=== PATIENT | female | born 1990 | race American Indian/Alaskan Native ===

== ENCOUNTER 2017-02-10 15:36 | Emergency (ER) | payer BC, MEDICAID ==
[2017-02-10 15:49] VITALS: BP 96/64
== END 2017-02-11 03:15 | disposition left against medical advice (07) ==
LOC: ED 15:36
DX: R06.02 Shortness of breath (principal); R20.0 Anesthesia of skin; R20.2 Paresthesia of skin; Z53.21 Procedure and treatment not carried out due to patient leaving prior to being seen by health care provider

== ENCOUNTER 2017-06-01 13:38 | Emergency (ER) | payer MEDICAID | END 2017-06-01 13:39 | disposition left against medical advice (07) | LOC: ED 13:38 | DX: R10.9 Unspecified abdominal pain (principal); Z53.21 Procedure and treatment not carried out due to patient leaving prior to being seen by health care provider ==

== ENCOUNTER 2020-12-10 16:47 | Inpatient (IN) | payer OTHER ==
[2020-12-10] MEDS ORDERED: AMPICILLIN/NS 2 GM/100 ML 2 GM/100 ML BAG IV ONE (17:28)
[2020-12-10] MEDS ORDERED: LIDOCAINE (2%) 20 MG/1 ML VIAL 20 ML MDV INFILTRATI ONE (17:28)
[2020-12-10] MEDS ORDERED: miSOPROStol 200 MCG TAB PR PRN (17:28)
[2020-12-10] MEDS ORDERED: OXYTOCIN 10 UNIT/1 ML INJ IM PRN (17:28)
[2020-12-10] MEDS ORDERED: METHYLERGONOVINE MALEATE 0.2 MG/ML VIAL IM PRN (17:28)
[2020-12-10] MEDS ORDERED: CARBOPROST TROMETHAMINE 250 MCG/1 ML INJ IM PRN (17:28)
[2020-12-10] MEDS ORDERED: ACETAMINOPHEN 325 MG TAB PO PRN ×2 (17:28→23:16)
[2020-12-10] MEDS ORDERED: LOPERAMIDE 2 MG CAP PO PRN (17:28)
[2020-12-10] MEDS ORDERED: NALOXONE 0.4 MG/1 ML INJ IV PRN (17:28)
[2020-12-10] MEDS ORDERED: ONDANSETRON 4 MG/2 ML INJ IV PRN ×2 (17:28→23:16)
[2020-12-10] MEDS ORDERED: fentaNYL 100 MCG/2 ML INJ IV PRN (17:28)
[2020-12-10] MEDS ORDERED: TERBUTALINE 1 MG/1 ML INJ SUB-Q PRN (17:28)
[2020-12-10] MEDS ORDERED: MINERAL OIL 30 ML ORAL LIQD PO PRN (17:28)
[2020-12-10] MEDS ORDERED: PROMETHAZINE 25 MG TAB PO PRN ×2 (17:28→23:16)
[2020-12-10] MEDS ORDERED: LACTATED RINGERS 1,000 ML IV SCH (17:30)
--- NOTE | 2020-12-10 17:33 | History and Physical Report ---
History of Present Illness Date of examination: 12/10/20 (contractions) Date of admission: 12/10/20 Chief complaint: Contractions that have become stronger in the last few hours. History of present illness: EDC Confirmation: 12/23/2020 Gestational Age: 38.1 wks on admission Past History : 3 Term Births: 1 Premature Births: 0 Living Children: 1 Para: 1 Mult. Births: 0 Prev : 0 Prev. attempt? 0 Aborta: 1 Elect. Ab: 0 Spont. Ab: 1 Ectopics: 0 # 1 Delivery date: 12/25/2014 Weeks Gestation: 39+1 Delivery type: Vaginal Anesthesia type: epidural Delivery location: [facility] Sex: male weight: 7.25 Comments: none # 2 Delivery date: 05/2018 Delivery type: SAB Past Medical History: Reviewed history from 09/02/2019 and no changes required: MVP (2012) Lupus - 2013 Ovarian Cysts Past Surgical History: Reviewed history from 11/24/2016 and no changes required: MVP with MV repair 11/2012. Left leg surgery with holly placement (2011) Past Medical History Abnormal PAP: positive, +HPV ~2010; LEEP AUBREY Exposure: negative Infertility: negative Uterine Anomaly: negative Uterine Surgery (not C/S): negative Social Hx: Patient is single Chairman And Ceo Smoking History: Patient currently smokes every day. Patient has been counseled to quit. Infection History Hx of STD: gc/ct/trich HIV Risk Eval: low risk Hepatitis B Risk Eval: low risk Personal hx. of genital herpes: yes Partner hx. of genital herpes: no Rash, Viral, or Febrile illness since last LMP? no Varicella/Chicken Pox Status: Previous Disease Genetic History Congenital Heart Defect: Mom: no Dad: unknown Poncho Disease: Mom: no Dad: unknown Thalassemia Mom: no Dad: unknown Neural Tube Defect Mom: no Dad: unknown Down's Syndrome Mom: no Dad: unknown Dc-Sachs Mom: no Dad: unknown Sickle Cell Disease/Trait Mom: no Dad: unknown Hemophilia Mom: no Dad: unknown Muscular Dystrophy Mom: no Dad: unknown Cystic Fibrosis Mom: no Dad: unknown Challis Chorea Mom: no Dad: unknown Mental Retardation Mom: no Dad: unknown Fragile X Mom: no Dad: unknown Other Genetic/Chromosomal Disorder Mom: no Dad: unknown Child w/other defect Mom: no Dad: unknown Enviromental Exposures Xray Exposure: no Medication, drug, or alcohol use since LMP: no Chemical/Other Exposure: no Exposure to Cat Liter: no Hx of Parvovirus (Fifth Disease): no Occupational Exposure to Children: none Current Allergies (reviewed today): * Pollen Past History Past Medical History: no pertinent history, other (Lupus) Past Surgical History: other (2013: leg surgery with holly placement, Mitral valve repair) 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 (Ovarian cysts) Social history: no significant social history - Obstetrical History Expected Date of Delivery: 12/23/20 Actual Gestation: 38 Week(s) 1 Day(s) : 3 Para: 1 Hx # Term Pregnancies: 1 Number of Pregnancies: 0 Spontaneous Abortions: 1 Induced : 0 Number of Living Children: 1 Medications and Allergies Allergies Allergy/AdvReac Type Severity Reaction Status Date / Time pollen Allergy Itching Uncoded 12/10/14 09:28 Home Medications Medication Instructions Recorded Confirmed Last Taken Type Amoxicillin [Trimox CAP] 500 mg PO TID #10 capsule 01/29/14 12/25/14 Unknown Rx Ibuprofen [Motrin] 800 mg PO Q8H #14 tablet 01/29/14 12/25/14 12/25/14 17:02 Rx prednisoLONE 15 ml PO QDAY 5 Days ml 01/29/14 12/25/14 Unknown Rx Vit-Fe Fumar-FA [ 1 tab PO DAILY 12/10/14 12/25/14 2 Days Ago History Vitamin] ~12/23/14 diphenhydrAMINE [Benadryl] 25 mg PO Q8HR PRN 12/10/14 12/25/14 12/05/14 21:00 History 1 Lidocaine/Prilocaine [Emla Cream] 30 gm TP PRN #1 cream..g. 12/25/14 Unknown Rx Active Meds: Active Medications Acetaminophen (Acetaminophen 325 Mg Tab) 1,000 mg PO Q6H PRN PRN Reason: Pain, Mild (1-3) Carboprost Tromethamine (Carboprost Tromethamine 250 Mcg/1 Ml Inj) 250 mcg IM ONCE PRN PRN Reason: Uterine Bleeding Ephedrine Sulfate (Ephedrine Sulfate 50 Mg/1 Ml Inj) 10 mg IV Q2M PRN PRN Reason: Hypotension Fentanyl (Fentanyl 100 Mcg/2 Ml Inj) 100 mcg IV Q2H PRN PRN Reason: Pain,Severe (7-10) LABOR PAIN Oxytocin/Sodium Chloride (Pitocin/Ns 30 Unit/500ml) 30 units in 500 mls @ 4 mls/hr IV TITR ROXANNE; Protocol Lactated Ringer's (Lactated Ringers) 1,000 mls @ 125 mls/hr IV DIRECT ROXANNE Oxytocin/Sodium Chloride (Pitocin/Ns 30 Unit/500ml) 30 units in 500 mls @ 40 mls/hr IV TITR ROXANNE; Protocol Ampicillin Sodium (Ampicillin/Ns 2 Gm/100 Ml) 2 gm in 100 mls @ 100 mls/hr IV ONCE ONE; Protocol Stop: 12/10/20 18:27 Lidocaine (Lidocaine (2%) 20 Mg/1 Ml Vial 20 Ml Mdv) 20 ml INFILTRATI ONCE ONE Stop: 12/10/20 17:29 Loperamide HCl (Loperamide 2 Mg Cap) 2 mg PO ONCE PRN PRN Reason: give with Hemabate Methylergonovine Maleate (Methylergonovine Maleate 0.2 Mg/Ml Vial) 0.2 mg IM ONCE PRN PRN Reason: Uterine Bleeding Mineral Oil (Mineral Oil 30 Ml Oral Liqd) 30 ml PO QHS PRN PRN Reason: Constipation Misoprostol (Misoprostol 200 Mcg Tab) 800 mcg MO ONCE PRN PRN Reason: Uterine Bleeding Naloxone HCl (Naloxone 0.4 Mg/1 Ml Inj) 0.1 mg IV Q2MIN PRN PRN Reason: Res Rate </= 8 or 02 SAT < 92% Ondansetron HCl (Ondansetron 4 Mg/2 Ml Inj) 4 mg IV Q8H PRN PRN Reason: Nausea And Vomiting Oxytocin (Oxytocin 10 Unit/1 Ml Inj) 10 unit IM ONCE PRN PRN Reason: Uterine Bleeding Promethazine HCl (Promethazine 25 Mg Tab) 25 mg PO Q6H PRN PRN Reason: Nausea And Vomiting Terbutaline Sulfate (Terbutaline 1 Mg/1 Ml Inj) 0.25 mg SUB-Q ONCE PRN PRN Reason: Hyperstimulation/Hypertonicity Review of Systems All systems: negative - Vital Signs Vital signs: Vital Signs Pulse BP 78 130/96 12/10/20 17:18 12/10/20 17:18 Temp Pulse Resp BP Pulse Ox 78 130/96 12/10/20 17:18 12/10/20 17:18 - Physical Exam Breasts: Positive: deferred Cardiovascular: Regular rate Lungs: Positive: Normal air movement Abdomen: Positive: normal appearance, soft Uterus: Positive: normal size Extremities: Positive: normal Deep Tendon Reflex Grade: Normal +2 - Obstetrical FHR: category 1 Cervical Dilatation: 4 (BBOW per RN) Cervical Effacement Percentage: 80 station: -2 Results Result Diagrams: 12/10/20 15:45 All other labs normal. GBS POSITIVE HBsAg Screen Negative Negative *1 RPR Non Reactive Non Reactive *2 Rubella Antibodies, IgG 1.33 index Immune >0.99 *3 Non-immune <0.90 Equivocal 0.90 - 0.99 Immune >0.99 ABO Grouping O *4 Rh Factor Positive *5 Please note: Prior records for this patient's ABO / Rh type are not available for additional verification. Antibody Screen Negative Negative *6 Tests: (2) HB Solu + Rflx Frac (053183) Hemoglobin (Hgb) Solubility Negative Negative *31 Tests: (3) HIV Ag/Ab with Reflex (110398) HIV Screen 4th Generation wRfx Non Reactive Non Reactive *32 Tests: (4) HCV Ab w/Rflx to Verification (540366) ! HCV Ab <0.1 s/co ratio 0.0-0.9 *33 Tests: (5) Comment: ([id number]) ! Comment: SPRCS *34 Non reactive HCV antibody screen is consistent with no HCV infection, unless recent infection is suspected or other evidence exists to indicate HCV infection. Assessment and Plan A: 30 y.o. @ 38.1 wks with ctxs. Cervical exam per analytic manager: /-2. GBS positive. Hx of herpes. - Patient Problems (1) 38 to 41 weeks gestation of Current Visit: Yes Status: Acute Plan to address problem: Admit to labor and delivery. Start IV and draw admission labs. Continuous EFM. Anticipate . (2) GBS (group B streptococcus) infection Current Visit: Yes Status: Acute Plan to address problem: Antibiotics ordered per protocol. (3) Genital herpes, unspecified Current Visit: Yes Status: Acute Qualifiers: Herpes simplex infection site: unspecified site of urogenital system Qualified Code(s): A60.00 - Herpesviral infection of urogenital system, unspecified Plan to address problem: No lesions seen on exam. Pt has been taking Valtrex as prescribed.
[2020-12-10] MEDS ORDERED: OXYTOCIN DRIP 30 UNITS/500 ML BAG IV SCH ×3 (18:00→23:45)
[2020-12-10] MEDS ORDERED: ACETAMINOPHEN 500 MG TAB PO PRN (18:05)
[2020-12-10 18:06] LABS: Hematocrit 36.3 % (30.3-42.9); Hemoglobin 12.1 gm/dl (10.1-14.3); Mean Corpuscular HGB Conc 33 % (30-34); Mean Corpuscular Volume 78 fl (79-97); Platelet Count 217 K/mm3 (140-440); Red Blood Count 4.63 M/mm3 (3.65-5.03); Red Cell Distribution Width 14.2 % (13.2-15.2)
[2020-12-10] MEDS ORDERED: valACYclovir 500 MG TAB PO SCH (19:00)
[2020-12-10] MEDS ORDERED: LACTATED RINGERS 250 ML IV SOLN IV ONE (20:51)
[2020-12-10] MEDS ORDERED: NalbUPHINE 10 MG/1 ML INJ IV PRN (20:51)
[2020-12-10] MEDS ORDERED: NALOXONE 2 MG/2 ML INJ IV PRN (20:51)
[2020-12-10] MEDS ORDERED: ePHEDrine SULFATE 50 MG/1 ML INJ IV PRN (20:51)
[2020-12-10] MEDS ORDERED: diphenhydrAMINE 50 MG/ML VIAL IV PRN (20:51)
[2020-12-10] MEDS ORDERED: fentaNYL-BUPIV 2 MCG/ML-0.125% 200 MCG/100 ML BAG EPIDURAL SCH (21:00)
--- NOTE | 2020-12-10 21:22 | Anesthesia Consultation ---
Anesthesia Consult and Med Hx Date of service: 12/10/20 - Airway Anesthetic Teeth Evaluation: Good ROM Head & Neck: Adequate Mental/Hyoid Distance: Adequate Mallampati Class: Class III Intubation Access Assessment: Possibly Difficult - Pulmonary Exam CTA: Yes - Cardiac Exam Cardiac Exam: RRR - Pre-Operative Health Status ASA Pre-Surgery Classification: ASA2 Proposed Anesthetic Plan: Epidural, Spinal - Pulmonary Hx Smoking: Yes Hx Asthma: No COPD: No Hx Sleep Apnea: No - Cardiovascular System Hx Hypertension: No Hx Coronary Artery Disease: No Hx Heart Attack/AMI: No Hx Angina: No Hx Percutaneous Transluminal Coronary Angioplasty (PTCA): No Hx Pacemaker: No Hx Internal Defibrillator: No Hx Valvular Heart Disease: Yes (h/o MVP and repair) - Central Nervous System Hx Seizures: No Hx Psychiatric Problems: No - Gastrointestinal Hx Gastroesophageal Reflux Disease: No - Endocrine Hx Renal Disease: No Hx Liver Disease: No Hx Insulin Dependent Diabetes: No Hx Non-Insulin Dependent Diabetes: No Hx Hypothyroidism: No Hx Hyperthyroidism: No - Hematic Hx Anemia: No Hx Sickle Cell Disease: No - Other Systems Hx Alcohol Use: No Hx Obesity: Yes
--- NOTE | 2020-12-10 21:24 | Progress Note ---
Labor Epidural - Labor Epidural Start Time: 21:02 Stop Time: 21:15 Performed by:: RONAK ARROYO Procedure: Patient is requesting combined spinal epidural for labor and pain. H&P, labs were reviewed. All questions and concerns were answered. Informed consent was obtained. Timeout performed. Patient in sitting position on side of bed. Sterile prep and drape was performed. 3 mL 1% lidocaine skin wheal at L [3]-L [4]. 18-gauge Irma epidural needle advanced to [id number] using air technique, [7cm]. 27-gauge spinal needle advanced, pt reported a strong L side parathesia so needle removed. Epidural catheter advanced to [12] cm. [negative] Aspiration, [negative] test dose. Sterile dressing applied. Patient tolerated procedure well.
[2020-12-10] MEDS: ePHEDrine SULFATE 50 MG/1 ML INJ IV PRN ×2 (21:33→22:01)
[2020-12-10] MEDS ORDERED: SODIUM CHLORIDE 0.9% 1000 ML 1,000 ML ONE (21:54)
--- NOTE | 2020-12-10 22:01 | Progress Note ---
Assessment and Plan A: 30 y.o. @ 38.1 wks, active labor, cervical exam /2. Large amount of thick green mec noted on bed. P: Continue to monitor labor progress. Start amnioinfusion. Anticipate . - Patient Problems (1) 38 to 41 weeks gestation of Current Visit: Yes Status: Acute (2) GBS (group B streptococcus) infection Current Visit: Yes Status: Acute (3) Genital herpes, unspecified Current Visit: Yes Status: Acute Qualifiers: Herpes simplex infection site: unspecified site of urogenital system Qualified Code(s): A60.00 - Herpesviral infection of urogenital system, unspecified Subjective - Subjective Date of service: 12/10/20 (FSE and IUPC placed. ) Principal diagnosis: IUP @ 38.1 wks, SROM mec, active labor. Patient reports: other (Vaginal pressure) Objective - Vital Signs Vital Signs: Vital Signs - 12hr 12/10/20 12/10/20 12/10/20 17:18 17:35 18:24 Temperature 98.3 F Pulse Rate 78 78 68 Respiratory 18 Rate Blood Pressure 130/96 122/74 Blood Pressure 130/96 [Left] O2 Sat by Pulse Oximetry 12/10/20 12/10/20 12/10/20 19:19 19:22 20:24 Temperature 98.4 F Pulse Rate 76 76 69 Respiratory 17 Rate Blood Pressure 113/69 130/90 Blood Pressure 113/69 [Left] O2 Sat by Pulse Oximetry 12/10/20 12/10/20 12/10/20 20:36 21:01 21:03 Temperature 98 F Pulse Rate 75 69 Respiratory Rate Blood Pressure 119/71 Blood Pressure [Left] O2 Sat by Pulse 97 Oximetry 12/10/20 12/10/20 12/10/20 21:06 21:11 21:12 Temperature Pulse Rate 66 68 73 Respiratory Rate Blood Pressure 150/90 Blood Pressure [Left] O2 Sat by Pulse 98 100 Oximetry 12/10/20 12/10/20 12/10/20 21:14 21:16 21:21 Temperature Pulse Rate 70 68 86 Respiratory Rate Blood Pressure 168/70 Blood Pressure [Left] O2 Sat by Pulse 99 98 Oximetry 12/10/20 12/10/20 12/10/20 21:22 21:24 21:25 Temperature Pulse Rate 87 81 80 Respiratory Rate Blood Pressure 107/65 96/62 89/55 Blood Pressure [Left] O2 Sat by Pulse Oximetry 12/10/20 12/10/20 12/10/20 21:26 21:27 21:30 Temperature Pulse Rate 79 80 77 Respiratory Rate Blood Pressure 83/48 85/52 Blood Pressure [Left] O2 Sat by Pulse 96 Oximetry 12/10/20 12/10/20 12/10/20 21:31 21:33 21:36 Temperature Pulse Rate 80 87 97 H Respiratory Rate Blood Pressure 84/55 88/50 Blood Pressure [Left] O2 Sat by Pulse 98 97 Oximetry 12/10/20 12/10/20 12/10/20 21:41 21:45 21:46 Temperature Pulse Rate 96 H 75 92 H Respiratory Rate Blood Pressure 92/50 103/55 Blood Pressure [Left] O2 Sat by Pulse 98 90 100 Oximetry 12/10/20 12/10/20 12/10/20 21:49 21:51 21:54 Temperature Pulse Rate 88 93 H 89 Respiratory Rate Blood Pressure 95/52 Blood Pressure [Left] O2 Sat by Pulse 100 91 Oximetry - Exam Narrative Exam: Pt feeling vaginal pressure. Before cervical exam a large amount of thick green mec gushed out of vagina. Cervical exam 7/-2. FSE and IUPC placed. Category 2 tracing with decelerations noted into the 80's with recovery to baseline. Pt's blood pressure noted to be in the 80's/40's. RN administered ephedrine. Will continue to monitor blood pressures. Will also start amnioinfusion. FHR: category 2 Uterine Contraction Monitor Mode: Internal Cervical Dilatation: 7 Cervical Effacement Percentage: 90 station: -2 Uterine Contraction Pattern: Regular Uterine Tone Measurement Phase: Resting Uterine Contraction Intensity: Moderate - Labs Labs: Abnormal Labs 12/10/20 15:45 MCV 78 L MCH 26 L Laboratory Results - last 24 hr 12/10/20 12/10/20 12/10/20 15:45 15:45 15:45 WBC 9.0 RBC 4.63 Hgb 12.1 Hct 36.3 MCV 78 L MCH 26 L MCHC 33 RDW 14.2 Plt Count 217 Syphilis IgG Antibody Nonreactive Blood Type O POSITIVE Antibody Screen Negative
[2020-12-10] MEDS ORDERED: AMPICILLIN/NS 1 GM/50 ML 1 GM/50 ML BAG IV SCH (23:00)
--- NOTE | 2020-12-10 23:12 | Procedure Note ---
OB Delivery Note - Delivery Date of Delivery: 12/10/20 Paper Twister Tender: MARK MICHAELS Estimated blood loss: 200cc - Vaginal Delivery presentation: vertex Delivery position: OA Intrapartum events: mult.variable deceleratio, other(please specify) (Prolonged decelerations) Delivery induction: none Delivery monitor: external FHT, external uterine, internal FHT, internal uterine Route of delivery: Delivery placenta: spontaneous Delivery cord: nuchal cord (X1 easily reduced. ), 3 umbilical vessels Episiotomy: none Delivery laceration: none Anesthesia: none Delivery comments: of viable female infant over intact perineum. Nuchal cord X1 easily reduced. to mother abdomen for skin to skin. Cord cut and clamped and handed to FELI team for evaluation. Spontaneous delivery of placenta, intact, complete, 3 vessels noted. Meconium stained placenta with possible calcifications noted. Will send to pathology. Perineum and vagina inspected. No lacerations noted. Fundus firm, minimal bleeding noted. EBL 200ml. Apgars 8,9. Weight 5-11. Instruments and sponges counted X 2 and correct X2. Mother and left in stable condition in the care of RN. - A at 1 minute: 8 at 5 minutes: 9 Infant Gender: Female (Rosamaria, 5-11)
[2020-12-10] MEDS ORDERED: BENZOCAINE/MENTHOL 20/0.5% TOP SPRAY 56 GM TP PRN (23:16)
[2020-12-10] MEDS ORDERED: MAGNESIUM HYDROXIDE (MOM) ORAL LIQD UDC PO PRN (23:16)
[2020-12-10] MEDS ORDERED: WITCH HAZEL/ GLYCERIN PAD TP PRN (23:16)
[2020-12-10] MEDS ORDERED: LANOLIN/ZINC/DIMETHICONE (LANSINOH) 7 GM TP PRN ×2 (23:16)
[2020-12-10] MEDS ORDERED: diphenhydrAMINE 25 MG CAP PO PRN (23:16)
[2020-12-11] MEDS: IBUPROFEN 800 MG TAB PO SCH ×4 (02:00→21:43)
--- NOTE | 2020-12-11 08:25 | Progress Note ---
Assessment and Plan PPD #1 s/p uncomplicated . VSSAF. H&H ordered for 11am. pt c/o left hip pain exacerbated by delivery. Advised hip pain can occur after vaginal delivery. encouraged warm shower and use of tylenol/motrin for pain. rn to call if pain worsens or is unrelieved. - Patient Problems (1) Vaginal delivery Current Visit: No Status: Acute Plan to address problem: continue course plan for d/c home tomorrow Subjective - Subjective Date of service: 12/11/20 Principal diagnosis: day #1 s/p Patient reports: appetite normal, voiding normally, pain well controlled, ambulating normally, other (left hip pain), no dizzy ambulation Hurley: doing well, nursing well Objective - Vital Signs Latest vital signs: Vital Signs Temp Pulse Resp BP BP Pulse Ox 12/11/20 04:23 98.0 F 68 20 127/81 83 L 12/11/20 03:00 18 12/11/20 02:00 18 12/11/20 00:46 83 18 116/73 100 12/11/20 00:17 87 100 12/11/20 00:12 76 100 12/11/20 00:07 74 100 12/11/20 00:06 75 109/54 12/11/20 00:02 75 100 12/10/20 23:57 82 100 12/10/20 23:52 76 100 12/10/20 23:47 80 99 12/10/20 23:42 80 100 12/10/20 23:37 82 99 12/10/20 23:35 97.8 F 77 114/60 12/10/20 23:32 83 97 12/10/20 23:27 87 100 12/10/20 23:22 85 100 12/10/20 23:20 85 104/76 12/10/20 23:17 84 99 12/10/20 23:12 90 100 12/10/20 23:07 83 99 12/10/20 23:05 83 108/64 12/10/20 23:02 86 98 12/10/20 22:57 83 99 12/10/20 22:52 83 99 12/10/20 22:49 85 117/78 12/10/20 22:47 85 100 12/10/20 22:42 67 93 12/10/20 22:37 91 H 100 04/12/21 22:32 88 100 12/10/20 22:27 83 100 12/10/20 22:22 79 100 12/10/20 22:17 55 L 12/10/20 22:15 88 83 L 12/10/20 22:11 98 H 100 12/10/20 22:09 90 109/59 12/10/20 22:06 91 H 100 12/10/20 22:05 88 120/65 12/10/20 22:01 98 H 100 12/10/20 21:59 88 83/46 12/10/20 21:57 89 80/49 12/10/20 21:56 94 H 100 12/10/20 21:54 89 91 12/10/20 21:51 93 H 100 12/10/20 21:49 88 95/52 12/10/20 21:46 92 H 103/55 100 12/10/20 21:45 75 90 12/10/20 21:41 96 H 92/50 98 12/10/20 21:36 97 H 97 12/10/20 21:33 87 88/50 12/10/20 21:31 80 84/55 98 12/10/20 21:30 77 85/52 12/10/20 21:27 80 83/48 12/10/20 21:26 79 96 12/10/20 21:25 80 89/55 12/10/20 21:24 81 96/62 12/10/20 21:22 87 107/65 12/10/20 21:21 86 98 12/10/20 21:16 68 99 12/10/20 21:14 70 168/70 12/10/20 21:12 73 150/90 12/10/20 21:11 68 100 12/10/20 21:06 66 98 12/10/20 21:03 69 119/71 12/10/20 21:01 75 97 12/10/20 20:36 98 F 12/10/20 20:24 69 130/90 12/10/20 19:22 76 113/69 12/10/20 19:19 98.4 F 76 17 113/69 12/10/20 18:24 68 122/74 12/10/20 17:35 98.3 F 78 18 130/96 12/10/20 17:18 78 130/96 Intake and Output 12/10/20 12/11/20 12/11/20 23:59 07:59 15:59 Intake Total 360 Output Total 600 Balance -240 Intake: Intake, Free Water 360 Output: Urine 600 Void 600 Other: Total, Output Amount 600 Weight 102.965 kg Estimated Blood Loss 200 - Exam Breasts: Present: normal, Cardiovascular: Present: Regular rate Lungs: Present: Clear to auscultation, Normal air movement Abdomen: Present: normal appearance, soft Vulva: both: normal Uterus: Present: normal, firm, fundal height at umbilicus Extremities: Present: normal Deep Tendon Reflex Grade: Normal +2 - Labs Labs: Abnormal lab results 12/10/20 Range/Units 15:45 MCV 78 L (79-97) fl MCH 26 L (28-32) pg
[2020-12-11] MEDS: DOCUSATE SODIUM 100 MG CAP PO SCH ×2 (08:47→21:43)
[2020-12-11] MEDS ORDERED: PRENATAL VIT27-FE FUMARATE-FOLIC ACID VIT TAB PO SCH (10:00)
[2020-12-11] MEDS ORDERED: HYDROcodone/ACETAMINOPHEN 5-325 MG TAB PO SCH (11:30)
--- NOTE | 2020-12-11 13:51 | Post Anesthesia Evaluation ---
- Post Anesthesia Evaluation Patient Participated: Yes Airway Patent: Yes Stable Respiratory Function: Yes Nausea/Vomiting: No Temp > 96.8F: Yes Pain Manageable: Yes Adequeate Hydration: Yes Anesthesia Complications: No Block Receding Appropriately: Yes Patient on Ventilator: No
[2020-12-11 14:23] LABS: Hematocrit 32.2 % (30.3-42.9); Hemoglobin 10.6 gm/dl (10.1-14.3)
[2020-12-12] MEDS: IBUPROFEN 800 MG TAB PO SCH ×4 (00:05→23:58)
[2020-12-12] MEDS ORDERED: TETANUS,DIPH,PERTUSS(ACELL) VACCINE 0.5 ML SYRINGE IM ONE (06:00)
--- NOTE | 2020-12-12 06:43 | Discharge Summary ---
Providers - Providers Date of Admission: 12/10/20 17:28 Date of discharge: 12/12/20 (desires discharge) Attending physician: HILDA BARTLETT Primary care physician: HILDA BARTLETT Hospitalization Reason for admission: active labor Delivery: Episiotomy: none Laceration: none Other procedures: none complications: none Discharge diagnosis: IUP at term delivered [place] baby: female Hospital course: Normal Spontaneous Vaginal Delivery Pt alert and oriented X3. VSS. H&H 10.6/32.2. Fundus is firm and 2 below the umbilicus. Bleeding is small. Pt. denies any pain. . Plan is to discharge home today and follow up in office in 4 weeks. Condition at discharge: Good Disposition: DC-01 TO HOME OR SELFCARE - Discharge Diagnoses (1) Vaginal delivery Status: Acute Comment: RTO 4 weeks PP care Plan - Provider Discharge Summary Activity: routine, no sex for 6 weeks, no heavy lifting 4 weeks, no strenuous exercise Diet: routine Instructions: routine Additional instructions: [] Smoking cessation referral if applicable(refer to patient education folder for contact #) [] Refer to [facility] Booklet Call your doctor immediately for: * Fever > 100.5 * Heavy vaginal bleeding ( >1 pad per hour) * Severe persistent headache * Shortness of breath * Reddened, hot, painful area to leg or breast * Drainage or odor from incision. * Keep incision clean and dry at all times and follow doctor's instructions regarding bathing/showering - Follow up plan Follow up: HILDA BARTLETT MD [Primary Care Provider] - 01/09/21 (Congratulations! Please call [phone] to schedule visit in four weeks. Take Motrin/ibuprofen for pain/cramping Call with any concerns.)
[2020-12-12] MEDS: DOCUSATE SODIUM 100 MG CAP PO SCH (23:58)
[2020-12-13 00:18] VITALS: BP 144/69
== END 2020-12-12 23:59 | disposition home or self-care (01) | DRG 774 ==
LOC: TRG 16:47 → APU 16:51 → TRG 17:28 → LD 17:28 → OB 12-11 00:43
PROVIDERS: ADMIT Obstetrics & Gynecology; ATTEND Obstetrics & Gynecology
PROC: 10E0XZZ Delivery of Products of Conception, External Approach (ICD-10-PCS; principal; 2020-12-10)
PROC: 3E0R3BZ Introduction of Anesthetic Agent into Spinal Canal, Percutaneous Approach (ICD-10-PCS; 2020-12-10)
PROC: 00HU33Z Insertion of Infusion Device into Spinal Canal, Percutaneous Approach (ICD-10-PCS; 2020-12-10)
PROC: 3E0234Z Introduction of Serum, Toxoid and Vaccine into Muscle, Percutaneous Approach (ICD-10-PCS; 2020-12-12)
DX: O99.824 Streptococcus B carrier state complicating childbirth (principal); O98.32 Other infections with a predominantly sexual mode of transmission complicating childbirth; O99.334 Smoking (tobacco) complicating childbirth; F17.200 Nicotine dependence, unspecified, uncomplicated; O99.214 Obesity complicating childbirth; O76 Abnormality in fetal heart rate and rhythm complicating labor and delivery; A60.09 Herpesviral infection of other urogenital tract; Z20.822 Contact with and (suspected) exposure to COVID-19; Z3A.38 38 weeks gestation of pregnancy; Z37.0 Single live birth; Z23 Encounter for immunization
CPT/HCPCS: 36415; 59025; 85014; 85018; 85027; 86592; 86850; 86900; 86901; 88307; G0378; J0290; J2405; J2590; J3010; J7120; U0003